=== PATIENT | female | born 1980 | race Caucasian/White ===

== ENCOUNTER 2019-02-05 14:19 | Emergency (ER) | payer MEDICAID ==
[~2019-02-05] VITALS: Ht 152.4 cm; Wt 90.7 kg
[2019-02-05 14:25] VITALS: BP_SYST 126
--- NOTE | 2019-02-05 14:25 | NUR ---
Patient to ER bed 5 to gown for evaluation. Side rails up. Assumed care.
--- NOTE | 2019-02-05 14:45 | NUR ---
Patient arrived via POV, AAOx4, and ambulatory with steady gait. Patient c/c of left breast/chest wall pain. Radiates down left arm. Patient states onset was 1 week ago, last , she has PO toradol and excedrin prescribed for shoulder pain. Will continue to follow up and monitor.
--- NOTE | 2019-02-05 14:52 | NUR ---
ER at bedside examining patient.
[2019-02-05] MEDS ORDERED: IBUPROFEN 800 MG TABLET PO ONE (15:15)
[2019-02-05 15:45] VITALS: BP_SYST 122
--- NOTE | 2019-02-05 15:47 | NUR ---
Patient given written and verbal discharge instructions and verbalizes understanding. ER MD discussed with patient the results and treatment provided. Patient in stable condition. ID arm band removed. Rx of Motrin given. Patient educated on pain management and to follow up with PMD. Pain Scale 2/10 tolerable for patient. Opportunity for questions provided and answered. Medication side effect fact sheet provided.
== END 2019-02-05 15:45 | disposition home or self-care (01) ==
LOC: EDBD 14:19 → SED 14:19
DX: R07.89 Other chest pain (principal)
CPT/HCPCS: 36600; 71045; 82803-TC; 99284